=== PATIENT | female | born 1980 | race Caucasian/White ===

== ENCOUNTER 2021-11-07 13:17 | Emergency (ER) | payer SELFPAY ==
[2021-11-07 14:13] VITALS: BP 144/92; PULSE 79; RESP 20; TEMP 36.9; O2SAT 20
--- NOTE | 2021-11-07 14:18 | ED.URI ---
HPI - URI/Sore Throat General Chief Complaint: Upper Respiratory Infection Stated Complaint: Sore Throat Time Seen by Provider: 11/07/21 14:00 Source: patient, RN notes reviewed and old records reviewed Mode of arrival: ambulatory Limitations: no limitations History of Present Illness HPI Narrative: 40 year old female who presents to [facility] care with complaints of sore throat which started yesterday which difficulty with swallowing noted this morning. Patient states that she noted pus pockets in the back of her throat this morning also. Patient reports that she feels congested in her sinus region with headache and feels lethargic. Patient states that she has had COVID immunizations but no booster, has had flu shot this season. Patient denies any known fevers, has has some chills and sweats and has some back aches. She reports that she has taken some Tylenol for her discomfort which she describes as aching and rates pain a 10/10. MD elicited complaint: sore throat, nasal congestion and other (headache) Onset (ago): day(s) (1) Consistency: constant Severity: severe Pain scale (0-10): 10 Description of mucous: clear Able to tolerate fluids by mouth: Yes Exacerbating factors: swallowing Treatments prior to arrival: acetaminophen Related Data Home Medications Medication Instructions Recorded Confirmed atorvastatin 10 mg PO DAILY 11/07/21 11/07/21 hydroxyzine HCl 50 mg PO PRN PRN 11/07/21 11/07/21 losartan 100 mg PO DAILY 11/07/21 11/07/21 prazosin 1 mg PO DAILY 11/07/21 11/07/21 quetiapine 50 mg PO DAILY 11/07/21 11/07/21 sertraline 50 mg PO DAILY 11/07/21 11/07/21 sumatriptan succinate 50 mg PO PRN PRN 11/07/21 11/07/21 trazodone 100 mg PO HS 11/07/21 11/07/21 Allergies Allergy/AdvReac Type Severity Reaction Status Date / Time Penicillins Allergy Mild Hives Verified 11/07/21 13:57 Iodinated Contrast Media AdvReac Mild Rash Verified 11/07/21 13:56 Review of Systems Review of Systems: CONSTITUTIONAL: Unknown if fever, reports chills, or sweats. EYES: Denies visual changes, redness, or discharge. ENT: Positive for rhinorrhea, congestion, sore throat, no otalgia. CARDIOVASCULAR: Denies chest pain, palpitations, or edema. RESPIRATORY: Denies cough or dyspnea. GASTROINTESTINAL: Denies abdominal pain, nausea, vomiting, or diarrhea. GENITOURINARY: Denies dysuria or hematuria. SKIN: Denies rash or itching. MUSCULOSKELETAL: Reports back pain, no joint pain, or myalgia. NEUROLOGIC: Positive for headache, no numbness, or weakness.reports she feels lethargic PSYCHIATRIC: Positive anxiety or depression. All systems reviewed & are unremarkable except as noted in HPI and below PMFSH Past Medical History Medical History (Updated 11/07/21 @ 22:04 by Laureen Samuel NP) Anxiety and depression Elevated cholesterol Hypertension Sinus problem Surgical History Surgical History (Updated 11/07/21 @ 22:05 by Laureen Samuel NP) History of hysterectomy History of tonsillectomy Social History Social History (Updated 11/07/21 @ 22:04 by Laureen Samuel NP) Smoking status: Never smoker Alcohol intake: never Substance use: never Living arrangements: with family Gender identity (if verbalized by the patient): Female Comments At time of signature agree with nursing documentation of past medical, surgical social and family history. There is no relevant family history pertinent to preseting complaints. Exam Narrative: GENERAL: Well-appearing, well-nourished, and in no acute distress, anxious HEAD: Normocephalic, atraumatic. EYES: PERRLA and EOMI. ENT: Nares red with clear rhinorrhea no epistaxis. Mucous membranes moist.TM's normal with good light reflex, throat red with white exudates in throat no lesions tonsils absent, some post nasal drainage present. NECK: Supple.lymphadenopathy CHEST: Clear to auscultation. No respiratory distress.SAO2 99% on room air HEART: Regular rate and rhythm. No murmur heard. Normal peripheral pu
== END 2021-11-07 14:30 | disposition home or self-care (01) ==
PROVIDERS: Emergency Provider Registered Nurse; PCP Physician Assistant
DX: J02.9 Acute pharyngitis, unspecified (principal); Z20.822 Contact with and (suspected) exposure to COVID-19; E78.00 Pure hypercholesterolemia, unspecified; I10 Essential (primary) hypertension; F41.9 Anxiety disorder, unspecified; F32.A Depression, unspecified
CPT/HCPCS: 87081; 87426; 87880; 99203; C9803; G0463

== ENCOUNTER 2021-11-09 07:00 | Emergency (ER) | payer OTHER, SELFPAY ==
--- NOTE | ~2021-11-09 | XR_ITS ---
EXAMINATION: XR chest 1V portable INDICATION: Cough TECHNIQUE: Portable AP chest at 0746 hours COMPARISON: None available FINDINGS: There are minimal airspace opacities of the lung bases. No pleural effusion or pneumothorax is identified. The cardiomediastinal silhouette is normal. IMPRESSION: 1. Minimal bibasilar airspace opacities, consistent with atelectasis versus pneumonia. Reviewed, dictated and finalized at location A. [employer] WORK[employer] IMPRESSION: 1. Minimal bibasilar airspace opacities, consistent with atelectasis versus pne umonia.
[2021-11-09 07:34] VITALS: BP 157/95; PULSE 81; RESP 18; TEMP 36.7; O2SAT 99
--- NOTE | 2021-11-09 08:15 | ED.FEVER ---
HPI - Fever General Chief Complaint: Fever Stated Complaint: Fever, cold symptoms Time Seen by Provider: 11/09/21 07:03 Source: RN notes reviewed History of Present Illness HPI Narrative: Patient presents emergency department from home for upper respiratory infection. 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 states she has been vaccinated she states that all of her cover test have been negative she denies any chest pain abdominal pain nausea vomiting or any other symptoms Related Data Allergies Allergy/AdvReac Type Severity Reaction Status Date / Time iohexol Allergy Rash Verified 11/09/21 07:39 [From contrast - CT, X-RAY] Penicillins Allergy Rash Verified 11/09/21 07:39 Review of Systems Review of Systems: Gen.: Ports subjective fever Eyes: Denies eye pain or visual change ENT: See HPI Respiratory: Denies shortness of breath ports cough CV: Denies chest pain or palpitations GI: Denies abdominal pain nausea, emesis or diarrhea Musculoskeletal: Denies back pain or muscle pain Neuro: Denies numbness, tingling, weakness or focal weakness Skin: Denies rash Except as documented, all other systems reviewed and negative [facility] Past Medical History Medical History (Updated 11/09/21 @ 08:17 by Ulices Vazquez DO) Patient denies significant medical history Social History Social History (Updated 11/09/21 @ 08:16 by Ulices Vazquez DO) Smoking status: Never smoker Exam Narrative: APPEARANCE: No acute distress, nontoxic, resting in bed EYES: EOMI HEENT: Normocephalic, atraumatic, TMs clear bilaterally bilateral turbinates boggy mild erythema posterior pharynx and bilateral tonsils no exudate uvula midline tolerating own secretions RESPIRATORY: No respiratory distress Clear to auscultation bilaterally with no rhonchi wheezing or rales. CARDIOVASCULAR: Regular rate and rhythm without murmurs rubs or gallops. ABDOMINAL: Soft, nontender, nondistended, no rebound or guarding MUSCULOSKELETAl: Moves all extremities. NEURO: Awake and alert. Following commands, speech normal, no focal deficits SKIN:: Warm, dry. No rashes lesions or abrasions PSYCHIATRIC: Normal affect/mood, Course Course Emergency Course: Discussed with patient results of workup and diagnosis. Discussed need for follow-up with primary care, proper use of medication, and reasons to return to the emergency department. Patient understands and agrees to current treatment plan Vital Signs Vital signs: Vital Signs Temperature 98.0 F 11/09/21 07:34 Pulse Rate 81 11/09/21 07:34 Respiratory Rate 18 11/09/21 07:34 Blood Pressure 157/95 H 11/09/21 07:34 Pulse Oximetry 99 11/09/21 07:34 Temperature 98.0 F 11/09/21 07:34 Pulse Rate 81 11/09/21 07:34 Respiratory Rate 18 11/09/21 07:34 Blood Pressure 157/95 H 11/09/21 07:34 Pulse Oximetry 99 11/09/21 07:34 MDM - Fever Lab Data Labs: Influenza A Screen Negative Reference Range: Negative Influenza B Screen Negative Reference Range: Negative Strep Screen Presumptive Negative *(Reference Range: Negative)* Imaging Data Radiologist's impression: ITS Impressions Chest X-Ray 11/09/21 08:00 IMPRESSION: 1. Minimal bibasilar airspace opacities, consistent with atelectasis versus pneumonia. Discharge Plan Discharge Clinical Impression: Community acquired pneumonia Patient Disposition: Home, Self-Care Condition: Stable Instructions: Antibiotic Form, Upper Respiratory Infection (ED) Additio
[2021-11-09] MEDS: AZITHROMYCIN 250 MG TABLET 500 MG PO (08:32)
[2021-11-09] MEDS: IBUPROFEN 600 MG TABLET PO (08:33)
[2021-11-09 08:35] VITALS: BP 160/98; PULSE 70; RESP 18; O2SAT 99
--- NOTE | 2021-11-09 08:37 | PC.NURSE ---
Pt refusing Covid swab at this time. states You about killed me with the flu swab up my nose, i ain't do that again
== END 2021-11-09 08:42 | disposition home or self-care (01) ==
PROVIDERS: Emergency Provider Emergency Medicine; PCP Physician Assistant
DX: J18.9 Pneumonia, unspecified organism (principal)
CPT/HCPCS: 71045; 87081; 87804; 87880; 99283; A9270

== ENCOUNTER 2021-12-15 18:22 | Emergency (ER) | payer OTHER, SELFPAY ==
--- NOTE | ~2021-12-15 | XR_ITS ---
EXAMINATION: XR shoulder LT min 2V DATE: 12/15/2021 18:42 INDICATION: Left shoulder injury and pain. TECHNIQUE: 4 views of left shoulder were obtained. COMPARISON: None. FINDINGS: Bone alignment is normal. No fracture. Joint spaces are well maintained. IMPRESSION: 1. Normal left shoulder. Reviewed, dictated and finalized at location A. IMPRESSION: 1. Normal left shoulder.
--- NOTE | 2021-12-15 18:29 | ED_ITS ---
HPI - Extremity Injury (Upper) General Chief Complaint: Extremity Injury, Upper Stated Complaint: upper extremity pain Time Seen by Provider: 12/15/21 18:28 History of Present Illness HPI narrative: 40-year-old female presents emergency room complaints of left shoulder pain. Patient states that she was walking up the stairs when she tripped and fell landing on on her left shoulder. Patient reports decreased range of motion left arm. Related Data Allergies Allergy/AdvReac Type Severity Reaction Status Date / Time iohexol Allergy Rash Verified 11/09/21 07:39 [From contrast - CT, X-RAY] Penicillins Allergy Rash Verified 11/09/21 07:39 Review of Systems Review of Systems: CONSTITUTIONAL: Denies fever, chills, or sweats. EYES: Denies visual changes, redness, or discharge. ENT: Denies rhinorrhea, congestion, sore throat, or otalgia. CARDIOVASCULAR: Denies chest pain, palpitations, or edema. RESPIRATORY: Denies cough or dyspnea. GASTROINTESTINAL: Denies abdominal pain, nausea, vomiting, or diarrhea. GENITOURINARY: Denies dysuria or hematuria. SKIN: Denies rash or itching. MUSCULOSKELETAL: Reports pain left shoulder NEUROLOGIC: Denies headache, numbness, dizziness, or weakness. PSYCHIATRIC: Denies anxiety or depression. COUNTS INCLUDE 234 BEDS AT THE [facility] Past Medical History Medical History Patient denies significant medical history Social History Social History Smoking status: Never smoker Exam Narrative: GENERAL: Well-appearing, well-nourished, and in no acute distress. HEAD: Normocephalic, atraumatic. EYES: PERRLA and EOMI. NECK: Supple. No adenopathy or masses. No carotid bruits or JVD CHEST: Clear to auscultation. No respiratory distress. No wheezes rales or rhonchi HEART: Regular rate and rhythm. No murmur heard. Normal peripheral pulses. ABDOMEN: Soft, nontender, nondistended, normal active bowel sounds. EXTREMITIES: Normal range of motion. No edema. left shoulder: +TTP to anterior/posterior deltoid; no bony abnormality; pain with ROM in all fry of movement; unable to assess empty can and drop arm test d/t pain SKIN: Warm, dry, no rash. NEURO: No focal deficits. Alert and oriented x3. PSYCH: Normal mood and affect. Discharge Plan Discharge Clinical Impression: Left shoulder pain Patient Disposition: Home, Self-Care Condition: Stable Instructions: Antibiotic Form Additional Instructions: Wear sling for comfort. May take Tylenol or ibuprofen as needed for pain. Follow-up with orthopedics within the next 3 to 4 days. May apply ice to affected area for the first 48 hours then replace with heat. Prescriptions: No Action benzonatate 100 mg capsule 100 mg PO TID PRN (Reason: cough) Qty: 10 RF: 0 ibuprofen [IBU] 600 mg tablet 600 mg PO Q6H PRN (Reason: pain) Qty: 20 RF: 0 azithromycin 250 mg tablet 250 mg PO DAILY 4 Days Qty: 4 RF: 0 Follow-up/Referrals: Micha,CRISTINA Rangel [Primary Care Provider] - Javier Villalba MD [Physician] - Time of Disposition: 19:16
[2021-12-15 18:40] VITALS: BP 137/98; PULSE 93; RESP 20; TEMP 36.8; O2SAT 97
== END 2021-12-15 19:34 | disposition home or self-care (01) ==
PROVIDERS: Emergency Provider Nurse Practitioner Family; PCP Physician Assistant
DX: S49.92XA Unspecified injury of left shoulder and upper arm, initial encounter (principal); W10.9XXA Fall (on) (from) unspecified stairs and steps, initial encounter
CPT/HCPCS: 73030; 99283; A4565